=== PATIENT | female | born 1945 | race Caucasian/White ===

== ENCOUNTER 2024-06-01 10:16 | Outpatient (OUT) | payer MEDICARE, OTHER, SELFPAY ==
--- NOTE | 2024-06-01 07:24 | VEINCLINIC_ITS ---
Vital Signs 06/01/24 10:47 Height 5 ft 2 in Weight 65.771 kg BMI 26.5 Varicose Veins Patient in this day with c/o bilateral leg pain and edema as far back as her back surgery in 2017. Patient has bilateral leg knee high compression stockings since 2017. Patient denies varicose vein treatments, family disease or problems in the past with blood clots. Anibal Moser MD personally performed the services described in this documentation, as scribed by Micheal Lopez RN in my presence and it is both accurate and complete. Micheal Moser RN, am scribing for, and in the presence of, Dr. Anibal Aguirre and in the presence of the patient. thigh: bilateral, knee: bilateral, calf: bilateral, ankle: bilateral and toure: bilateral aching, burning, cramping, dull and tender 8 5 years Worsened in recent months: Yes standing, sitting and walking analgesics, elevating extremities and compression stockings Reports muscle spasms of leg, fatigue, heaviness, limb pain, edema and leg edema History of lower extremity trauma: No Superficial thrombophlebitis: No Family history of varicose veins: no Has patient had previous lower extremity venous surgery: No Patient has previously received the following treatment(s) for lower extremity varicose veins: Reports none Does patient have a history of : no Does patient intend to have future pregnancies: no Has patient had lower extremity venous scan with relux testing: No Support hose used: Yes Problems walking or doing physical activity: Yes How does it affect you: patient has dificulty lifting legs to get in car Do you walk much: Yes Do you stand much: Yes Review of Systems ROS Narrative Anibal Moser MD personally performed the services described in this documentation, as scribed by Micheal Lopez RN in my presence and it is both accurate and complete. Micheal Moser RN, am scribing for, and in the presence of, Dr. Anibal Aguirre and in the presence of the patient. Status of ROS 10 or more systems reviewed and unremark able except as noted in history and below Integumentary/Breast Reports: redness, skin pain, skin tenderness, skin swelling and changes in skin color Neurological Reports: weakness in extremities PFSH PFSH Medical History (Updated 06/01/24 @ 10:57 by Micheal Lopez) Breast cancer ?C50.919 - Malignant neoplasm of unspecified site of unspecified female breast (ICD-10) FHx: cholecystectomy ?Z83.79 - Family history of other diseases of the digestive system (ICD-10) Pain due to varicose veins of both lower extremities ?I83.813 - Varicose veins of bilateral lower extremities with pain (ICD-10) Tachycardia ?R00.0 - Tachycardia, unspecified (ICD-10) Diabetes ?E11.9 - Type 2 diabetes mellitus without complications (ICD-10) Kidney stones ?N20.0 - Calculus of kidney (ICD-10) CHF (congestive heart failure) ?I50.9 - Heart failure, unspecified (ICD-10) Surgical History (Updated 06/01/24 @ 10:56 by Micheal Lopez) Previous back surgery ?Z98.890 - Other specified postprocedural states (ICD-10) Family History (Updated 06/01/24 @ 10:57 by Micheal Lopez) Other Family history of hypertension Family history of myocardial infarction Meds Home Medications and Allergies Home Medications ?Medication ?Instructions ?Recorded ?Confirmed ?Type aspirin 81 mg capsule 81 mg PO DAILY 06/01/24 06/01/24 History atorvastatin 40 mg tablet 40 mg PO DAILY 06/01/24 06/01/24 History famotidine 20 mg tablet (Acid 20 mg PO DAILY 06/01/24 06/01/24 History Controller) furosemide 40 mg tablet (Lasix) 20 mg PO BID 06/01/24 06/01/24 History glipizide 5 mg tablet 5 mg PO DAILY 06/01/24 06/01/24 History lisinopril 20 mg tablet 10 mg PO BID 06/01/24 06/01/24 History metformin 500 mg tablet 500 mg PO BID 06/01/24 06/01/24 History pantoprazole 40 mg granules 40 mg PO QAM 06/01/24 06/01/24 History delayed-release for susp in packet (Protonix) Allergies Allergy/AdvReac Type Severity Reaction Status Date / Time No Known Drug Allergies Allergy Verified 06/01/24 10:58 Exam Narrative Exam Narrative: IAnibal MD personally performed the services described in this documentation, as scribed by Micheal Lopez RN in my presence and it is both accurate and complete. I, Micheal Lopez RN, am scribing for, and in the presence of, Dr. Anibal Aguirre and in the presence of the patient. Constitutional Documenting provider has reviewed patient's vital signs: yes Common normals: oriented x3 Nutritional appearance: overweight Cardio Peripheral pulses: posterior tibial pulses present and dorsalis pedis pulses present Extremity Common normals: normal capillary refill General: calf tenderness and edema Right lower extremity: lower leg Right lower leg: inspection and palpation Left lower extremity: lower leg Left lower leg: inspection and palpation Neuro Common normals: oriented x3 Results Additional Findings Additional findings: Bilateral leg reflux u/s reveals mildly dilated incompetent bilateral GSV Assessment and Plan Assessment and Plan (1) Pain due to varicose veins of both lower extremities: Plan Patient adviced to continue use of bilateral leg knee high compression stockings. Paitent to f/u with neurosurgeon, symptoms seem to match other issues before moving forward with ablation of bilateral GSVs Anibal Moser MD personally performed the services described in this documentation, as scribed by Micheal Lopez RN in my presence and it is both accurate and complete. Micheal Moser RN, am scribing for, and in the presence of, Dr. Anibal Aguirre and in the presence of the patient.
--- NOTE | 2024-06-01 07:25 | W.VEIN ---
Discharge Plan Discharge Disposition: Home, Self-Care Plan of Treatment: f/u with neurosurgeon Print Language: Malay Discharge Date/Time: 06/01/24 13:06
--- NOTE | 2024-06-01 10:22 | VEIN_ITS ---
Patient Name: MARS JASMINE MR#: [id number] : 1945 Exam Date: 06/01/2024 Ordering Doctor: DR KEDAR CAMACHO M.D. RADIOLOGY REPORT PROCEDURE: [facility] - OFFICE VISIT INITIAL COMPARISON: None. PROGRESS NOTES: [age] year old female who presents with a 7 year history of lower extremity edema and swelling, muscle weakness, heaviness, limb pain, fatigue, spasm. The patient's leg symptoms are fairly symmetric bilaterally. There has been a progression of symptoms over time. This increases with use. The patient describes an improvement with : None. The patient denies any signs and symptoms to suggest arterial ischemia. The patient describes a family history : None pertinent. The patient has drinking and smoking history of unknown. Patient has a past medical history significant for back surgery 7 years ago. The patient denies a history of deep venous thrombus or pulmonary embolus. See separate history and physical for medication list. No prior treatment for varicose or spider veins. No current use of compression stockings. After review of nurse notes, history and physical exam I discussed at length the pathophysiology of venous hypertension and possible treatments, therapies and strategies available. We discussed at length the importance of elevating the lower extremities above the level of the heart, increased physical activity and compression stocking use. Ultrasound venous reflux study performed today was discussed at length with the patient. The report demonstrates mildly dilated great saphenous veins bilaterally with moderate incompetency.. PHYSICAL EXAM: The right leg demonstrates a few varicosities, several spider veins, no ulceration, no edema, moderate skin discoloration. The left leg demonstrates a few varicosities, a few spider veins, no ulceration, no edema, moderate skin discoloration. Both thighs, legs and feet were symmetrically warm to the touch. Good posterior tibial and dorsalis pedis pulses were present bilaterally. VEIN/ Facility EST Comprehensive IMPRESSION: 1. Bilateral lower extremity venous insufficiency 2. Bilateral lower extremity varicose veins 3. No significant lower extremity subcutaneous edema 4. No known flow significant arterial disease 5. CEAP: C4a thin, AP, , NC PLAN: 1. Began use of compression stockings 2. Elevated legs and increased physical activity symptomatic relief 3. Follow-up patient's back surgeon and/or neurology/neurologist. Patient has lower extremity weakness, heaviness, and limited ability to lift legs is likely more related to neurological issues rather than vein disease. 4. Patient was advised that we could provide treatment for ablation of the great saphenous veins bilaterally which may slightly help some symptoms, but would be very unlikely to correct her major issues. Patient was advised to follow-up with us as needed in the future but to address her neurological issues first. Nurse notes, history and physical were reviewed and confirmed, see attached forms. The nurse was present throughout the physical exam and consultation Dictated by: Anibal Aguirre M.D. on 06/01/2024 at 12:49 Approved by: Anibal Aguirre M.D. on 06/01/2024 at 12:56
--- NOTE | 2024-06-01 10:22 | VEIN_ITS ---
Patient Name: MARS JASMINE MR#: [id number] : 1945 Exam Date: 06/01/2024 Ordering Doctor: DR KEDAR CAMACHO M.D. RADIOLOGY REPORT PROCEDURE: VC EXT VENOUS REFLUX NAS LMTD COMPARISON: None. INDICATIONS: I83.813 Bilateral painful varicose veins TECHNIQUE: Duplex imaging of the lower extremity to assess the deep and superficial venous system for the presence of deep or superficial venous incompetence and to document the location and severity of disease. The study includes evaluation of the great saphenous vein (GSV), anterior accessory saphenous vein (AASV) and small saphenous vein (SSV). Patient scanned in reverse Trendelenburg and standing. FINDINGS: RIGHT LOWER EXTREMITY: Saphenofemoral Junction Reflux: Yes 6.6mm 1.1 sec GSV: Diam (mm) Reflux/ Time (sec) Proximal Thigh 5.8 Yes 1.1 Mid Thigh 5.2 Yes 0.8 Distal Thigh 3.8 Yes 1.5 Prox Calf 4.0 Yes 1.5 Mid Calf 0.8 No Saphenopopliteal Junction Reflux: 1.7mm No SSV: Proximal Calf 1.7 No Mid Calf 1.8 No AASV: Not present Proximal Thigh Mid Thigh Distal Thigh Thrombi: No acute or chronic thrombus visualized Compressibility: Normal Flow: Normal Preforator: Dist/med calf 2.6mm with 1.5s reflux. Tech Note: Incompetent GSV. Patent varicose vein dist/med calf 3.5mm with 0.8s reflux. LEFT LOWER EXTREMITY: Saphenofemoral Junction Reflux: Yes 9.0 mm 2.1 sec GSV: Diam (mm) Reflux/Time (sec) Proximal Thigh 5.8 Yes 1.5 Mid Thigh 4.5 Yes 2.2 Distal Thigh 4.7 Yes 0.7 Prox Calf 3.6 No Mid Calf 1.5 Yes 0.6 Saphenopopliteal Junction Relux: 2.1 mm No SSV: Proximal Calf 1.6 No Mid Calf 2.0 No AASV: Not present Proximal Thigh Mid Thigh Distal Thigh Thrombi: No acute or chronic thrombus visualized Compressibility: Normal Flow: Normal Tread Cutter: Dist/med calf 2.4s reflux. Tech Note: Incompetent GSV. Patent varicose vein dist/med calf 3.9mm with 0.8s reflux. Patent varicose vein prox/med calf 3.4mm with 0.6s reflux. CONCLUSION: 1. Mildly dilated and moderately incompetent right and left great saphenous veins . Dictated by: Anibal Aguirre M.D. on 06/01/2024 at 11:38 Approved by: Anibal Aguirre M.D. on 06/01/2024 at 12:48
[2024-06-01 10:47] VITALS: BMI 26.5
== END 2024-06-01 13:06 | disposition home or self-care (01) ==
LOC: VC 10:21
PROVIDERS: Family Provider Family Medicine; PCP Radiology Diagnostic Radiology; Visit Provider Radiology Diagnostic Radiology
DX: I83.813 Varicose veins of bilateral lower extremities with pain (principal)
CPT/HCPCS: 93970; G0463